=== PATIENT | female | born 1980 | race Hispanic/Latino ===

== ENCOUNTER 2020-04-06 08:54 | Emergency (ER) | payer OTHER ==
[2020-04-06 09:48] LABS: #Lymphocytes 1.6 thou/uL (1.20-3.40); #Monocytes 0.5 thou/uL (0.11-0.59); #Neutrophils 2.9 thou/uL (1.40-6.50); %Basophils 0.3 % (0.0-1.0); %Eosinophils 0.9 % (0.0-10.0); %Lymphocytes 30.6 % (21.0-51.0); %Monocytes 10.1 % (0.0-10.0); %Neutrophils 58.1 % (42.0-75.0); Hemoglobin 16.2 g/dL (12.0-16.0); Mean Corpuscular HGB CONC 34.4 g/dL (32.0-36.0); Mean Corpuscular Hemoglobin 29.5 pg (27.0-31.0); Mean Corpuscular Volume 85.7 fL (78.0-98.0); Mean Platelet Volume 9.6 fL (7.4-10.4); Platelet Count 186 thou/uL (130-400); White Blood Cell (WBC) Count 5.1 thou/uL (4.8-10.8)
[2020-04-06 10:07] LABS: ALT (SGPT) 65 U/L (8-55); AST (SGOT) 42 U/L (5-34); Albumin 4.5 g/dL (3.5-5.0); Alkaline Phosphatase 151 U/L (40-110); Anion Gap 17 mmol/L (10-20); BUN (Urea Nitrogen) 13 mg/dL (7.0-18.7); Bilirubin, Total 0.7 mg/dL (0.2-1.2); Calc. Creatinine Clearance 0 mL/min (70-130); Calcium 9.4 mg/dL (7.8-10.44); Carbon Dioxide 23 mmol/L (22-29); Chloride 106 mmol/L (98-107); Globulin 3.5 g/dL (2.4-3.5); Glucose 107 mg/dL (70-105); Potassium 3.7 mmol/L (3.5-5.1); Sodium 142 mmol/L (136-145)
--- NOTE | 2020-04-06 10:40 | RAD ---
PORTABLE CHEST: Date: 04/06/2020 PROVIDED CLINICAL HISTORY: Dyspnea. FINDINGS: Cardiac and mediastinal silhouette is within normal limits. No focal consolidation, pleural fluid, or pneumothorax apparent. IMPRESSION: No evidence for an acute cardiopulmonary process. POS: [email or web address]
[2020-04-06] MEDS ORDERED: Ondansetron PF 4 MG/2 ML Vial ONE (11:02)
== END 2020-04-06 11:55 | disposition home or self-care (01) ==
LOC: ERS 08:54
DX: U07.1 COVID-19 (principal)
CPT/HCPCS: 71045; 80053; 84484; 85025; 93005; 96374; J2405

== ENCOUNTER 2021-02-18 11:47 | Outpatient (CLI) | payer OTHER ==
[2021-02-19 11:23] LABS: SARS-CoV-2 PCR by NAA Not Detected (NotDetected)
== END 2021-02-18 11:48 | disposition home or self-care (01) ==
LOC: LABBT 11:47
PROVIDERS: ATTEND Surgery
DX: Z01.818 Encounter for other preprocedural examination (principal); K80.20 Calculus of gallbladder without cholecystitis without obstruction; Z20.822 Contact with and (suspected) exposure to COVID-19
CPT/HCPCS: 93005; 93010; U0003; U0005

== ENCOUNTER 2021-02-21 06:39 | Day surgery (SDC) | payer OTHER ==
[2021-02-19 13:07] VITALS: BMI 30.9
[2021-02-21] MEDS ORDERED: cefOXitin Sodium/Dextrose 2 GM/50 ML BAG ONE (08:22)
[2021-02-21] MEDS ORDERED: Bupivacaine PF 0.75% SDV 10 ML ONE (08:49)
[2021-02-21] MEDS ORDERED: Lidocaine 1% w/Epinephrine 1:100K 20 ML VIAL ONE (08:49)
[2021-02-21] MEDS ORDERED: Bupivacaine 0.25% 10 ML VIAL ONE (08:50)
[2021-02-21] MEDS ORDERED: Midazolam HCl 2 mg/2 ml Vial ONE (08:57)
[2021-02-21] MEDS ORDERED: Fentanyl 100 MCG/2 ML VIAL ONE ×3 (08:57→10:59)
[2021-02-21] MEDS ORDERED: Rocuronium Bromide 10 MG/ML (10ML VIAL) ONE (09:24)
[2021-02-21] MEDS ORDERED: PROPOFOL 200 MG/20 ML VIAL ONE (09:24)
[2021-02-21] MEDS ORDERED: Ondansetron PF 4 MG/2 ML Vial ONE ×2 (09:24→10:12)
[2021-02-21] MEDS ORDERED: Glycopyrrolate 0.2 MG/ML 5 ML SYRINGE ONE (09:24)
[2021-02-21] MEDS ORDERED: Dexamethasone 20 MG/5 ML VIAL ONE (09:24)
[2021-02-21] MEDS ORDERED: Promethazine HCl 25 MG/ML VIAL ONE (10:28)
[2021-02-21] MEDS ORDERED: Ketorolac Tromethamine 30 MG/ML VIAL ONE (10:36)
[2021-02-21] MEDS ORDERED: Morphine 4 MG/ML VIAL ONE (12:35)
== END 2021-02-21 14:50 | disposition home or self-care (01) ==
LOC: SDC 06:39
PROVIDERS: ATTEND Surgery
PROC: 0FT44ZZ Resection of Gallbladder, Percutaneous Endoscopic Approach (ICD-10-PCS; principal; 2021-02-21)
DX: K80.10 Calculus of gallbladder with chronic cholecystitis without obstruction (principal); Z79.899 Other long term (current) drug therapy
CPT/HCPCS: 88304; C1713; J0694; J1100; J1885; J2250; J2270; J2405; J2550; J2704; J3010; J3490; S0020

== ENCOUNTER 2021-02-26 12:51 | Emergency (ER) | payer OTHER ==
[~2021-02-26 12:51] MED LIST: Iopamidol-370 76% 500 ML 1 ML ONE
[2021-02-26 14:59] LABS: #Eosinphils 0.6 thou/uL (0.0-0.7); #Lymphocytes 1.5 thou/uL (1.20-3.40); #Monocytes 0.6 thou/uL (0.11-0.59); #Neutrophils 5.9 thou/uL (1.40-6.50); %Basophils 0.3 % (0.0-1.0); %Eosinophils 6.8 % (0.0-10.0); %Monocytes 7.2 % (0.0-10.0); %Neutrophils 68.7 % (42.0-75.0); Hemoglobin 15.3 g/dL (12.0-16.0); Mean Corpuscular HGB CONC 35.4 g/dL (32.0-36.0); Mean Corpuscular Hemoglobin 30.9 pg (27.0-31.0); Mean Corpuscular Volume 87.1 fL (78.0-98.0); Mean Platelet Volume 9.8 fL (7.4-10.4); Platelet Count 171 thou/uL (130-400); RBC Distribution Width 12.3 % (11.5-14.5); Red Blood Cell (RBC) Count 4.95 mill/uL (4.20-5.40); White Blood Cell (WBC) Count 8.6 thou/uL (4.8-10.8)
[2021-02-26 15:13] LABS: ALT (SGPT) 110 U/L (8-55); AST (SGOT) 75 U/L (5-34); Albumin 4.1 g/dL (3.5-5.0); Alkaline Phosphatase 128 U/L (40-110); Anion Gap 12 mmol/L (10-20); BUN (Urea Nitrogen) 10 mg/dL (7.0-18.7); Bilirubin, Total 0.8 mg/dL (0.2-1.2); Calc. Creatinine Clearance 0 mL/min (70-130); Calcium 9.3 mg/dL (7.8-10.44); Carbon Dioxide 25 mmol/L (22-29); Chloride 104 mmol/L (98-107); Globulin 3.4 g/dL (2.4-3.5); Glucose 98 mg/dL (70-105); Lipase 22 U/L (8-78); Potassium 3.6 mmol/L (3.5-5.1); Protein, Total 7.5 g/dL (6.0-8.3); Sodium 137 mmol/L (136-145)
[2021-02-26] MEDS ORDERED: Ondansetron PF 4 MG/2 ML Vial ONE (16:13)
[2021-02-26] MEDS ORDERED: Acetaminophen 500 MG TAB ONE (16:13)
[2021-02-26 18:00] LABS: Bilirubin Negative (Negative); Blood, Urine Negative (Negative); Clarity Clear (Clear); Glucose, Urine (Dipstick) Normal (Negative); Ketone, Urine 20 mg/dL (Negative); Leukocyte Negative Leu/uL (Negative); Nitrite Negative (Negative); Protein, Urine (Dipstick) 10 mg/dL (Neg-Trace); Urobilinogen Normal mg/dL (Less than 2); pH, Urine 6.5 (5.0-9.0)
[2021-02-26 18:02] LABS: Specific Gravity, Urine 1.054 (1.002-1.036)
[2021-02-26 18:03] LABS: Pregnancy Test - Urine (BHCG) Negative (Negative); Pregu Control Background? CLEAR/WHITE (CLR/WHITE); Pregu Control Bar Appear? YES (CONTROL BAR); Specific Gravity 1.054 (1.002-1.036)
== END 2021-02-26 18:43 | disposition home or self-care (01) ==
LOC: ERS 12:51
DX: R10.33 Periumbilical pain (principal); G89.18 Other acute postprocedural pain; Z79.899 Other long term (current) drug therapy
CPT/HCPCS: 36415; 74177; 80053; 81003; 81025; 83690; 85025; 96374; J2405; Q9967

== ENCOUNTER 2022-02-04 07:52 | Outpatient (CLI) | payer BC | END 2022-02-04 07:53 | disposition home or self-care (01) | LOC: BICMAMMO 07:52 | PROVIDERS: ATTEND Family Medicine | DX: R92.8 Other abnormal and inconclusive findings on diagnostic imaging of breast (principal); N64.89 Other specified disorders of breast | CPT/HCPCS: 77066; G0279 ==

== ENCOUNTER 2024-11-02 12:47 | Outpatient (CLI) | payer OTHER | END 2024-11-02 12:48 | disposition home or self-care (01) | LOC: BICMAMMO 12:47 | PROVIDERS: ATTEND Family Medicine | DX: Z12.31 Encounter for screening mammogram for malignant neoplasm of breast (principal); Z80.3 Family history of malignant neoplasm of breast | CPT/HCPCS: 77063; 77067 ==